=== PATIENT | male | born 1990 | race American Indian/Alaskan Native ===

== ENCOUNTER 2022-05-07 18:51 | Emergency (ER) | payer SELFPAY ==
[2022-05-07] MEDS ORDERED: Amoxicillin/Clavulanate K 875-125 MG Tab PO ONE (19:47)
[2022-05-07] MEDS ORDERED: Benzocaine 20% Topical Spray UD MUCMEM ONE (19:49)
[2022-05-07] MEDS ORDERED: Lidocaine 2% Viscous Solution 15 ML UD PO ONE (19:49)
[2022-05-07] MEDS ORDERED: Benzocaine 20% Topical Spray UD ONE (20:12)
== END 2022-05-07 20:26 | disposition home or self-care (01) ==
LOC: MW.ED 18:51
DX: K04.7 Periapical abscess without sinus (principal)
CPT/HCPCS: 99282; A9270